=== PATIENT | female | born 1950 | race Caucasian/White ===

== ENCOUNTER → 2021-12-09 | Day surgery (SDC) | payer MEDICARE, OTHER ==
[~2021-12-09] VITALS: Ht 175.3 cm; Wt 98.9 kg
[~2021-12-09] MED LIST: ALEVE220 M1 PO; NORCO 5-325 TA1 EACH PO; PHENERGAN25 M1 PO; VIBRAMYCIN100 MG PO
[2021-12-09 07:53] LABS: HCT 43.5 % (37.0-47.0); HGB 14.3 g/dl (12.5-16.0); MCH 31.4 pg (25.0-31.0); MCHC 32.9 g/dL (32.0-36.0); MCV 95.6 fL (78.0-100.0); MPV 10.4 fL (6.0-9.5); RBC 4.55 M/uL (4.20-5.40); RDW 13.5 % (11.5-14.0); WBC 8.3 K/uL (4.0-10.5)
[2021-12-09 08:17] LABS: ALBUMIN 3.6 g/dL (3.4-5.0); BILIRUBIN - TOTAL 0.5 mg/dL (0.2-1.0); CREATININE 0.77 mg/dL (0.51-0.95); GLOBULIN (CALCULATION) 3.3 g/dL; TOTAL PROTEIN 6.9 g/dL (6.4-8.2)
== END | disposition home or self-care (01) ==
LOC: FAS 07:21
PROVIDERS: Surgery
DX: K43.0 Incisional hernia with obstruction, without gangrene (principal); K57.92 Diverticulitis of intestine, part unspecified, without perforation or abscess without bleeding; Z88.2 Allergy status to sulfonamides
CPT/HCPCS: 36415; 80053; 93005; C1781; J0690; J1170; J2250; J2405; J2704; J3010; J7120